=== PATIENT | male | born 1945 | race Caucasian/White ===

== ENCOUNTER 2022-04-19 23:12 | Inpatient (IN) | payer OTHER, SELFPAY ==
[2022-04-19] VITALS (8 sets, daily range): BP systolic 109–136; BP diastolic 59–90; PULSE 57–77; RESP 14–22; TEMP 35.8–37.1; O2SAT 94–99
--- NOTE | 2022-04-19 19:27 | WPDANESEPPF ---
Anes - Initial Pre Proc Eval Procedure: Operation Date: 04/19/22 19:00 Proposed Procedures p Exploratory Laparotomy, Pos Bowel Resec - Fei Gasca MD Date/Time: 04/19/22 19:27 Surgeon: Fei Gasca MD Pre Op Diagnosis: BOWEL PERFORATION Patient Data Age: 76 Gender: M Height: Weight: Patient hx anesthesia problems: none Family hx anesthesia problems: none Results Review: All pre-operative results and documents have been reviewed as part of the pre-operative evaluation. [facility] Past Medical History Medical History (Updated 04/19/22 @ 19:28 by Adryan Alston MD) INA (generalized anxiety disorder) HTN (hypertension) Hyperlipidemia Parkinsons Vascular dementia Anes - Eval Final PreProcedure Day of Procedure 04/19/22 19:27 Patient weight: normal Heart: regular rate and rhythm Lungs: clear to auscultation Airway: Mallampati scale class II Neurological: alert and oriented (x 1) Last oral intake: >/= 8 hours ASA classification: III Emergent: yes Anesthetic plan: proceed Anesthesia type and monitoring: general ETT and standard monitoring Results Review: All pre-operative results and documents have been reviewed as part of the pre-operative evaluation. Informed Consent: The patient's anesthetic plan and its attendant risks and benefits were discussed with the patient/family/POA. Questions were solicited and answers provided to the satisfaction of the patient/family/POA.
--- NOTE | 2022-04-19 19:49 | PM.IMHP ---
H&P: HPI History of Present Illness Date/Time: 04/19/22 19:49 Chief Complaint: Pneumoperitoneum and perforated bowel Narrative: Patient is a 76-year-old man who transferred here from [place] this evening. He resides in a group home and has a history of Parkinson's and mild dementia. He tested positive for COVID on 04/10 and has had some loose stools. He is not able to give a history and all of his history is taken from either my conversation with the emergency room physician in [place] or the records that accompany him. A apparently he had diarrhea but then today started having severe abdominal pain in both lower quadrants. He came to the emergency room in [place] and was noted to have a very tender abdomen with diffuse guarding. His white blood cell count was low. Creatinine was normal. H&H was normal. Urinalysis was unremarkable. A CT scan of the abdomen and pelvis was done in showed a huge pneumoperitoneum. The actual scan was not available to me but the report was. Reviewing the report showed that the entire colon was dilated and the rectum was decompressed beyond an anastomosis in the pelvis. Also it was noted that the wall of the colon was thickened. The source of the perforation was not evident from the CT scan. Once the patient arrived here, I did have a chance to briefly look over the accompanying records and talk with the patient as well as examine him. He was taken to the operating room expeditiously due to the acute surgical need. Review of Systems Review of Systems: ROS unobtainable: Yes unobtainable due to medical condition Constitutional: Constitutional: Reports as per [facility] Past Medical History Medical History (Updated 04/19/22 @ 22:43 by Fei Gasca MD) INA (generalized anxiety disorder) HTN (hypertension) Hyperlipidemia Parkinsons Vascular dementia Meds Home Medications and Allergies Allergies Allergy/AdvReac Type Severity Reaction Status Date / Time No Known Allergies Allergy Verified 04/19/22 20:00 Exam Const: General: comfortable, no acute distress, alert and awake Nutritional Appearance: underweight HENMT: Head: normocephalic and atraumatic General nose exam: Normal external nose present (Nasogastric tube in place) Mouth: Yes lip normal and Yes dry mucous membranes Eyes: Conjunctivae: conjunctivae normal Pupils: Equal, round and reactive pupils present EOM: EOMs intact bilaterally Neck: Neck: normal visual inspection, no lymphadenopathy and nontender Chest: Chest palpation & inspection: normal inspection of the chest and normal palpation of entire chest wall Resp: Effort & Inspection: normal respiratory effort Auscultation: clear to auscultation bilaterally Cardio: Rate: regular rate Rhythm: regular rhythm Heart sounds: no gallops, no murmurs and no rubs GI: Inspection: non-distended, scaphoid and scar (Transverse suprapubic scar, right lower quadrant scar, trocar scar) GI Palp: Yes Firmness to palpation present (GI), Yes Tenderness to palpation present (GI) (Diffusely with guarding), Yes Guarding due to palpation present (GI), No Hepatomegaly present and No Splenomegaly present Auscultation: absent bowel sounds Urinary Catheter: Urinary Catheter: patent and draining and urine clear Back/Spine/Pelvis: Back: no CVA tenderness, No mass and No erythema Skin: Lesions: no lesions Rashes: no rashes Neuro: General: no focal motor deficits and CN's II-XI intact bilaterally Cranial nerves: Yes Equal, round and reactive pupils present, Yes Bilaterally intact EOM present and Yes facial symmetry Speech: normal speech Motor exam (neuro): 5/5 motor strength present throughout and Motor abnormalities not present Extrem: General: no clubbing, cyanosis or edema and edema Psych: Speech and movement: Clear speech present Affect: normal affect Attitude: cooperative Assessment and Plan Assessment and plan (1) Surgical pneumoperitoneum: Code(s): K66.8
[2022-04-19] MEDS: LACTATED RINGERS 1,000 ML 30 ML IV CONT (22:09)
[2022-04-19] MEDS: fentaNYL CITRATE INJ (*CRX) 100 MCG/2 ML VIAL 25 MCG IV PUSH ×5 (22:18→23:45)
--- NOTE | 2022-04-19 22:27 | WPDHPUPDATE1 ---
History and Physical Update Update Date/Time: 04/19/22 22:27 History and Physical has been reviewed, including an updated exam of the patient. There are NO changes in the patient's condition. Risks, benefits, and alternatives have been discussed and questions answered. Patient agrees to proceed with procedure.
--- NOTE | 2022-04-19 22:54 | W.PM.PROC2 ---
Procedure Note - Detailed Date of Procedure 04/19/22 Pre-op Diagnosis Bowel perforation, pneumoperitoneum Post-op Diagnosis Other (Cecal perforation, colonic volvulus) Procedure Performed Total abdominal colectomy with ileostomy Surgeon Fei Gasca MD [employer] Furnace Operator Cathie ARIASA Anesthesia General Indications Patient was transferred here from [place] emergency room with CT scan evidence of large amount of pneumoperitoneum. He had been having abdominal pain as well. He was noted to have an acute surgical abdomen on exam and is taken now emergently to the operating room for bowel perforation. Findings Findings were unusual. The colon was quite dilated as mentioned in CT scan report. There was a serosal tear in the cecum along the tenia. Initially there was no perforation but as we continued to look there was a tiny hole in this that had probably perforated and then sealed off as the cecum decompressed somewhat. There was not a lot of free fluid in the abdomen but there was some brownish cloudy fluid that was not obviously stool. The cause of this was quite unusual. The patient had previous sigmoid resection with colorectal anastomosis and mobilization of the splenic flexure. The entire transverse colon splenic flexure and descending colon were surviving on the arc of [place]iol[place]. There was a huge mesenteric gap and very redundant colon on along vascular pedicle to the transverse colon. Volvulus had occurred involving the transverse colon and the descending colon with the long vascular pedicle and the excessive descending colon with really no mesenteric attachment. This had created colonic obstruction resulting in cecal distention and perforation. To resect the cecum and right colon left only the midtransverse pedicle which had been involved in the volvulus. This had to be sacrificed or the volvulus would recur. This did result in ischemia to the descending and distal transverse colon requiring there resection along with the ascending colon. Thus a total abdominal colectomy was required with end ileostomy. The rectum was stapled off from the colon. Description of Procedure The patient was taken to surgery and induced into general anesthesia. The abdomen is prepped and draped. We started with the mid abdominal incision and did encounter a lot of air in the abdomen. Surprisingly there was not a lot of fluid and there was no clear source of the free air immediately apparent. It was obvious that the colon itself was thickened and dilated. It was excessively mobile. I 1st ran the small intestine and saw no sign of perforation. The small intestine was then eviscerated. I looked carefully at the duodenum and stomach and saw no evidence of a perforated ulcer. I then looked at the dilated colon starting at the cecum. The findings were noted as above with the serosal defect in the tenia. No perforation was initially apparent. I was then were read that there was ruptured appendicitis. I mobilized the cecum and distal ileum. I took down adhesions and could not find the appendix as it was most likely previously removed. I then checked the remainder of the colon and noted that the volvulus had occurred. I un torsed the descending colon and transverse colon particularly at a pedicle adjacent to the ligament of Treitz and proximal jejunum. I looked again at the ascending colon and finally saw an area that was leaking a small amount of bowel content. I closed this with a 4-0 silk Lembert suture. I then decided to resect the right colon and planned to perform an ileotransverse anastomosis. I mobilized the ascending colon and the rest of the distal ileum. I then used the LigaSure as well as the cautery and divided the mesentery to the distal ileum. Distal ileum was divided with a TLC 75 stapler. The mesentery to the ascending colon was quite long. I exposed the mesentery and then used the LigaSure to divide the ileocolic artery and the mesentery to th
--- NOTE | 2022-04-19 23:30 | ADMGEN ---
This patient, Sloan Villeda, was admitted to Medical Room 346-01. Patient/family oriented to hospital policies and general routines including ID bracelet, bed and alarms, visiting hours, pain management, procedures, bathroom and other care routines, personal items, smoking policy, room service/diet, and visiting hours. Information on how to activate the Rapid Response Team has been discussed. Patient/Family are encouraged to report perceived risks to care and to ask questions if they do not understand what they are told or what they should do.
[2022-04-19] MEDS: LACTATED RINGERS 1,000 ML 100 ML IV CONT (23:57)
[2022-04-20] VITALS (13 sets, daily range): BP systolic 107–162; BP diastolic 55–88; PULSE 74–84; RESP 16–18; TEMP 36.3–37; O2SAT 94–100; BMI 22.4
--- NOTE | 2022-04-20 02:20 | PM.IMHP ---
H&P: HPI History of Present Illness Date/Time: 04/20/22 02:20 Chief Complaint: Acute abdomen Narrative: 76-year-old male with past medical history of dementia, Parkinson's disease, essential hypertension, BPH and overactive bladder who presented to the ER at [facility] due to abdominal pain and was found to have an acute abdomen. The patient was subsequently transferred to our facility for surgical intervention. The patient had tested positive for COVID on 04/10/2022. He had some loose stools associated. Earlier in the day on the the patient began having severe abdominal pain in both lower quadrants and exam consistent with acute abdomen. His imaging demonstrated a huge pneumoperitoneum and a dilated colon and rectum that was decompressed beyond the anastomosis of prior surgical procedure. The wall of the colon was thickened. The patient was brought to our facility and taken directly to the OR or the surgeon found serosal tear the cecum with a tiny hole. There was not a huge amount of free fluid. And decided the patient's prior sigmoid resection with colorectal anastomosis and mobilization of splenic flexure the antrum tired transverse colon and splenic flexure and descending colon or surviving. There was a huge mesenteric gap and redundant colon on the vascular pedicle to the transverse colon at which site there was a volvulus of the transverse colon and descending colon. This resulted in a colonic obstruction. In order to correct the obstruction surgeon had to resect the cecum and right colon as well as the midtransverse pedicle which had been involved in the volvulus. This resulted in ischemia to the descending and distal transverse colon requiring resection of these elements as well. Patient and up with a total abdominal colectomy with end ileostomy. The patient had reported 100 mL blood loss. In the ER the patient received a total of 400 mcg of phenylephrine and a little over 2 L of LR. He had approximately 300 mL of urine output. He had received Zosyn, famotidine, and lidocaine as well. The patient had significant hypokalemia at the outside facility with potassium of 2.5. The patient received 40 mEq potassium chloride rider. Source of information: H&P and surgical records. ER records from outside facility were reviewed. Patient cannot provide history due to his dementia and recent anesthesia. Review of Systems Review of Systems: Unobtainable due to the patient's dementia [facility] Past Medical History Medical History (Updated 08/04/22 @ 02:42 by Lida Rawls DO) B12 deficiency BPH (benign prostatic hyperplasia) INA (generalized anxiety disorder) HTN (hypertension) Hyperlipidemia Overactive bladder Parkinsons Vascular dementia Vitamin D deficiency Surgical History Surgical History (Updated 04/20/22 @ 04:50 by Lida Rawls DO) History of resection of large bowel Hx of cholecystectomy Family History Family History Other Unknown family medical history Social History Social History (Updated 04/20/22 @ 04:51 by Lida Rawls DO) Social History: The patient resides at a [facility]. The patient has a advanced directive in the chart that indicates code status is DNR. His [facility] records confirm this. Alcohol intake: unknown Substance use: never Spiritual care concerns: No Meds Home Medications and Allergies Home Medications Medication Instructions Recorded Confirmed Type bupropion HCl 150 mg 24 hr tablet, 150 mg PO DAILY Depression 04/20/22 04/20/22 History extended release calcium carbonate 600 mg-vitamin 2 cap PO DAILY Vitamin d deficiency 04/20/22 04/20/22 History D3 10 mcg (400 unit) capsule carbidopa 10 mg-levodopa 100 mg 1 tablet PO BID Parkinsons 04/20/22 04/20/22 History tablet carbidopa 25 mg-levodopa 100 mg 2 tablet PO QID Parkinsons 04/20/22 04/20/22 History tablet cholec
[2022-04-20 04:33] LABS: Hematocrit 38.6 % (42.0-52.0); Hemoglobin 13.1 g/dL (14.0-18.0); Mean Corpuscular HGB Conc 33.9 g/dl (32-36); Mean Corpuscular Hemoglobin 30.9 pg (26-34); Mean Platelet Volume 10.6 fl (7.4-10.4); Platelet Count Result 165 k/mm3 (150-375); Red Blood Count 4.24 M/mm3 (4.6-6.20); Red Cell Distribution Width 12.7 % (11.5-14.5); White Blood Count 6.1 K/mm3 (4.5-10.0)
[2022-04-20 04:44] LABS: INR 1.4; Partial Thromboplastin Time 28.4 SECONDS (22.3-36.8); Prothrombin Time 16.9 Seconds (11.1-14.7)
[2022-04-20 04:57] LABS: Alanine Aminotransferase 7 U/L (6-50); Albumin Level 2.4 g/dL (3.5-5.1); Alkaline Phosphatase 54 U/L (38-126); Anion Gap 5 mmol/L (8-16); Aspartate Amino Transferase 16 U/L (17-59); Bilirubin,Total 1.1 mg/dL (0.2-1.3); Blood Urea Nitrogen 22 mg/dL (9-20); Calcium 7.9 mg/dL (8.4-10.2); Carbon Dioxide 26 mmol/L (22-30); Chloride 105 mmol/L (98-107); Estimated CRCL calculation 80 ml/min; Estimated Glomerular Filt Rate > 60; Glucose 173 mg/dL (65-110); Lactic Acid Reflex 1.3 mmol/L (0.7-2.0); Magnesium 1.5 mg/dL (1.6-2.3); Potassium 2.9 mmol/L (3.4-5.0); Sodium 136 mmol/L (137-145)
[2022-04-20] MEDS: POTASSIUM CHLORIDE INJ 40 MEQ in SODIUM CHLORIDE 0.9% IV 500 ML 130 MEQ IVPB (05:32)
[2022-04-20] MEDS: MAGNESIUM SULF 4 GM/WATER100ML 4 GM/100 ML BAG IVPB (05:40)
[2022-04-20 06:31] LABS: Hematocrit 36.5 % (42.0-52.0); Hemoglobin 12.5 g/dL (14.0-18.0); Mean Corpuscular HGB Conc 34.2 g/dl (32-36); Mean Corpuscular Hemoglobin 31.6 pg (26-34); Mean Corpuscular Volume 92.2 fl (80-100); Mean Platelet Volume 10.8 fl (7.4-10.4); Platelet Count Result 167 k/mm3 (150-375); Red Blood Count 3.96 M/mm3 (4.6-6.20); Red Cell Distribution Width 12.5 % (11.5-14.5); White Blood Count 6.4 K/mm3 (4.5-10.0)
[2022-04-20 06:43] LABS: Anion Gap 6 mmol/L (8-16); Blood Urea Nitrogen 22 mg/dL (9-20); Calcium 7.8 mg/dL (8.4-10.2); Carbon Dioxide 24 mmol/L (22-30); Chloride 105 mmol/L (98-107); Estimated CRCL calculation 92 ml/min; Estimated Glomerular Filt Rate > 60; Glucose 169 mg/dL (65-110); Sodium 135 mmol/L (137-145)
[2022-04-20] MEDS: ENOXAPARIN 40 MG/0.4 ML SYRINGE SUB-Q (09:10)
[2022-04-20] MEDS: FAMOTIDINE 20 MG/2 ML VIAL IV PUSH (09:10)
[2022-04-20] MEDS: KCL 40 MEQ/D5/0.9% SOD CHL 1,000 ML 100 ML IV CONT (09:32)
--- NOTE | 2022-04-20 10:00 | PM.IMPN ---
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 - Acquired absence of other specified parts of digestive tract Status: Acute (2) History of ileostomy: Code(s): Z98.890 - Other specified postprocedural states Status: Acute (3) Perforated small intestine: Code(s): K63.1 - Perforation of intestine (nontraumatic) Status: Acute (4) Vascular dementia: Code(s): F01.50 - Vascular dementia without behavioral disturbance Status: Chronic (5) Parkinsons: Code(s): G20 - Parkinson's disease Status: Chronic (6) COVID-19: Code(s): U07.1 - COVID-19 Status: Acute Plan Patient had perforated bowel status post total large bowel resection with ileostomy. The patient is on empiric antibiotic therapy with Zosyn as he is high risk for infection given perforated viscus. Management per Surgical Service. Patient has NG tube in place to low intermittent suction and is on NPO except for ice chips. Patient is on IV fluids at 100 mL an hour. Pain management per surgical service. Patient does have a history of dementia. Dementia medications are on hold as well as his depression and anxiety medications. The patient is restless and is intermittently trying to reach for his NG and his Langford catheter. Patient did recently have COVID but is not having any respiratory symptoms. He is beyond the window for isolation for COVID-19. Isolation has been discontinued. The patient has Parkinson's disease his Sinemet and entacapone are held. Patient has acute hypokalemia. Potassium at outside facility was 2.5. Repeat here is 2.9. Will provide another potassium chloride rider. Magnesium level was also low. Will provide 4 g magnesium sulfate rider. Patient has been placed on telemetry to monitor for possible cardiac arrhythmias given a electrolyte disturbances. Recheck BMP and mag this afternoon. DVT prophylaxis per Surgical Service. Subjective Date/time seen: 04/20/22 10:00 Interval history: 76-year-old male with past medical history of dementia, Parkinson's disease, essential hypertension, BPH and overactive bladder who presented to the ER at [facility] due to abdominal pain and was found to have an acute abdomen. He is s/p total colectomy. POD 1. Alert to self and year. Somnolent but arousable. Denies pain. Further hx limited secondary to mental status. Review of Systems Review of Systems: ROS unobtainable: Yes unobtainable due to mental status Exam Narrative: Weight 72.8 kg BMI 22.4 Const: Other: Ill-appearing, well-developed well-nourished HENMT: Other: Mucous membranes are dry, NG present and connected to low intermittent wall suction Eyes: Other: Pupils are equal and reactive, no scleral icterus, no conjunctival pallor Neck: Other: No JVD, no lymphadenopathy Resp: Other: Decreased breath sounds bilaterally, no increased work of breathing Cardio: Other: Regular rate, regular rhythm, 2+ bilateral radial pedal pulses GI: Other: Underlying abdominal incision with overlying dressing clean dry and intact, ileostomy in the right side of the abdomen : Other: Langford catheter in place with dark urine present normal external male genitalia Skin: Other: Generalized pallor, non jaundice Neuro: Other: Patient is somnolent but arouses to verbal stimuli, moving all extremities equally, alert to self and year only Extrem: Other: No clubbing, cyanosis or edema, moving all extremities equally Psych: Other: Restless, grimacing, confused, not following commands Objective Data Vital Signs Vital Signs: Vital Signs - 24 hr 04/19/22 22:09 04/19/22 22:24 04/19/22 22:33 Temperature 96.4 F L Pulse Rate 57 L 64 Respiratory Rate 20 16 Blood Pressure 136/76 121/66 Pulse Oximetry 94 99 Oxygen Delivery Simple Face Mask Simple Face Mask Room Air Oxygen Flow Rate 10 10 04/19/22 2
[2022-04-20 10:14] LABS: Anion Gap 5 mmol/L (8-16); Blood Urea Nitrogen 19 mg/dL (9-20); Calcium 7.7 mg/dL (8.4-10.2); Carbon Dioxide 26 mmol/L (22-30); Chloride 107 mmol/L (98-107); Estimated CRCL calculation 80 ml/min; Estimated Glomerular Filt Rate > 60; Glucose 182 mg/dL (65-110); Magnesium 2.4 mg/dL (1.6-2.3); Potassium 3.3 mmol/L (3.4-5.0); Sodium 138 mmol/L (137-145)
--- NOTE | 2022-04-20 13:20 | PC.NURSE ---
Contacted Dr Henderson @[phone] to verify she was aware of the most recent Lactic Acid results and do report the latest vitals signs. I also informed her that family is at bedside and would like to speak to her
--- NOTE | 2022-04-20 14:19 | WPDANESPN ---
Anes - Prog Note Post-Op Date/Time: 04/20/22 14:19 Cardiovascular status: normal Respiratory status: normal Airway patency: baseline Mental status: baseline Post-Op hydration status: normal Vital Signs: Last Vital Signs Temp 36.3 C L 04/20/22 13:40 Pulse 81 04/20/22 13:40 Resp 18 04/20/22 13:40 BP 115/88 04/20/22 13:40 Pulse Ox 95 04/20/22 13:40 O2 Del Method Room Air 04/20/22 08:00 O2 Flow Rate 10 04/19/22 22:24 Pain Score (VAS): 09/26 I/O: Intake & Output 04/19/22 04/20/22 04/20/22 23:59 07:59 15:59 Intake Total 450 100 Output Total 150 Balance 450 -50 Laboratory Tests 04/20/22 06:19 04/20/22 09:53 04/20/22 04/20/22 04/20/22 04:25 04:25 04:25 WBC 6.1 RBC 4.24 L Hgb 13.1 L Hct 38.6 L MCV 91.0 MCH 30.9 MCHC 33.9 RDW 12.7 Plt Count 165 MPV 10.6 H PT 16.9 H INR 1.4 APTT 28.4 Sodium 136 L Potassium 2.9 L Chloride 105 Carbon Dioxide 26 Anion Gap 5 L BUN 22 H Creatinine 0.70 Estim Creat Clear Calc 80 Estimated GFR > 60 Glucose 173 H Lactic Acid Calcium 7.9 L Magnesium 1.5 L Total Bilirubin 1.1 AST 16 L ALT 7 Alkaline Phosphatase 54 Total Protein 5.0 L Albumin 2.4 L 04/20/22 04/20/22 04/20/22 04:25 04:25 06:19 WBC 6.4 RBC 3.96 L Hgb 12.5 L Hct 36.5 L MCV 92.2 MCH 31.6 MCHC 34.2 RDW 12.5 Plt Count 167 MPV 10.8 H PT INR APTT Sodium Potassium Chloride Carbon Dioxide Anion Gap BUN Creatinine Estim Creat Clear Calc Estimated GFR Glucose Lactic Acid 1.3 Calcium Magnesium Cancelled Total Bilirubin AST ALT Alkaline Phosphatase Total Protein Albumin 04/20/22 04/20/22 06:19 09:53 WBC RBC Hgb Hct MCV MCH MCHC RDW Plt Count MPV PT INR APTT Sodium 135 L 138 Potassium 3.0 L 3.3 L Chloride 105 107 Carbon Dioxide 24 26 Anion Gap 6 L 5 L BUN 22 H 19 Creatinine 0.60 L 0.70 Estim Creat Clear Calc 92 80 Estimated GFR > 60 > 60 Glucose 169 H 182 H Lactic Acid Calcium 7.8 L 7.7 L Magnesium 2.4 H Total Bilirubin AST ALT Alkaline Phosphatase Total Protein Albumin Post-procedural complaints: none Patient Feedback: Patient satisfied with anesthetic care.
--- NOTE | 2022-04-20 15:30 | PM.PNGS ---
Progress Note: A&P Assessment and Plan (1) Perforation of cecum: Code(s): K35.32 - Acute appendicitis with perforation and localized peritonitis, without abscess Status: Acute Assessment and Plan: doing actually pretty well after long, difficult surgery last night. Ileostomy has already started functioning. There is no nausea or abdominal distention. He is pretty lethargic but we were unsure of his baseline. NG tube was pulled out but will likely be fine with leaving it out. Probably try oral intake tomorrow. Okay to start medications such as Parkinson's medication at this time. (2) Colonic volvulus: Code(s): K56.2 - Volvulus Status: Acute Assessment and Plan: Volvulus with obstruction was source of cecal perforation. One able to eliminate risk of recurrence without sacrificing blood supply to remaining colon. Resulted in total abdominal colectomy and ileostomy. (3) Ileostomy status: Code(s): Z93.2 - Ileostomy status Status: Acute Assessment and Plan: Her ready functioning. Will watch closely for electrolyte imbalances or dehydration. (4) Status post total colectomy: Code(s): Z90.49 - Acquired absence of other specified parts of digestive tract Status: Acute (5) Vascular dementia: Code(s): F01.50 - Vascular dementia without behavioral disturbance Status: Chronic (6) Parkinsons: Code(s): G20 - Parkinson's disease Status: Chronic Subjective Subjective Date/Time Seen: 04/20/22 15:30 Post Op day: 1 Patient reports: no new complaints, afebrile and other (Not very verbal this afternoon. Was happy to hear he might get some food tomorrow) Exam Const: General: lethargic Nutritional Appearance: underweight Orientation/consciousness: lethargic GI: Inspection: non-distended, incision ( dressing dry and intact), scaphoid and other ( ileostomy pink with enteric content already) GI Palp: Yes Soft to palpation, Yes Tenderness to palpation present (GI) and Yes Other GI palpation findings present ( patient had pulled NG tube out and it has been left out) Auscultation: Hypoactive bowel sounds present Objective Data Vital Signs Vital Signs: Vital Signs - 24 hr 04/19/22 22:09 04/19/22 22:24 04/19/22 22:33 Temperature 35.8 C L Pulse Rate 57 L 64 Respiratory Rate 20 16 Blood Pressure 136/76 121/66 Pulse Oximetry 94 99 Oxygen Delivery Simple Face Mask Simple Face Mask Room Air Oxygen Flow Rate 10 10 04/19/22 22:39 04/19/22 22:54 04/19/22 23:04 Temperature Pulse Rate 67 68 70 Respiratory Rate 16 14 16 Blood Pressure 124/82 125/62 123/63 Pulse Oximetry 95 94 94 Oxygen Delivery Room Air Room Air Room Air Oxygen Flow Rate 04/19/22 23:12 04/19/22 23:27 04/19/22 23:57 Temperature 36.7 C 37.1 C 37.1 C Pulse Rate 72 75 77 Respiratory Rate 22 H 20 18 Blood Pressure 113/90 109/63 123/59 L Pulse Oximetry 95 96 98 Oxygen Delivery Oxygen Flow Rate 04/20/22 00:57 04/20/22 04:00 04/20/22 04:57 Temperature 37.0 C 36.4 C L Pulse Rate 82 82 81 Respiratory Rate 18 18 Blood Pressure 120/65 114/71 Pulse Oximetry 96 94 Oxygen Delivery Oxygen Flow Rate 04/20/22 06:00 04/20/22 10:20 04/20/22 08:00 Temperature 36.4 C L 36.3 C L Pulse Rate 80 81 76 Respiratory Rate 16 18 Blood Pressure 114/66 117/55 L Pulse Oximetry 96 98 Oxygen Delivery Oxygen Flow Rate 04/20/22 12:00 04/20/22 08:00 04/20/22 13:40 Temperature 36.3 C L Pulse Rate 76 76 81 Respiratory Rate 18 18 Blood Pressure 115/88 Pulse Oximetry 98 95 Oxygen Delivery Room Air Oxygen Flow Rate Intake/Output Intake/Output: Intake & Output 04/17/22 04/18/22 04/19/22 04/20/22 23:59 23:59 23:59 23:59 Intake Total 450 150 Output Total 150 Balance 450 0 Meds/Results Medications: Active Medications Generic Name Dose Route Start Last Admin Trade Name Freq PRN Reason Stop Dose Admin
[2022-04-20] MEDS: LORazepam INJ (*CRX) 2 MG/ML VIAL 1 MG IV PUSH (17:36)
[2022-04-21] VITALS (9 sets, daily range): BP systolic 106–116; BP diastolic 63–72; PULSE 60–76; RESP 16–20; TEMP 36–36.6; O2SAT 94–100
[2022-04-21] MEDS: KCL 40 MEQ/D5/0.9% SOD CHL 1,000 ML 100 ML IV CONT (00:22)
[2022-04-21] MEDS: FAMOTIDINE 20 MG/2 ML VIAL IV PUSH (00:23)
[2022-04-21] MEDS: fentaNYL CITRATE INJ (*CRX) 100 MCG/2 ML VIAL 25 MCG IV PUSH ×7 (02:01→17:48)
[2022-04-21 05:47] LABS: Basophils Percent Auto 0.1 % (0.2-1.2); Eosinophils Absolute Auto 0.1 K/mm3 (0-0.3); Eosinophils Percent Auto 0.9 % (0-4.4); Hematocrit 34.3 % (42.0-52.0); Hemoglobin 11.2 g/dL (14.0-18.0); Immature Granulocyte Absolute 0.07 K/mm3 (0.00-0.031); Immature Granulocyte Percent A 0.9 % (0-0.5); Lymphocytes Absolute Auto 0.31 K/mm3 (0.9-3.2); Lymphocytes Percent Auto 4.1 % (18.3-44.2); Mean Corpuscular HGB Conc 32.7 g/dl (32-36); Mean Platelet Volume 10.7 fl (7.4-10.4); Monocytes Absolute Auto 0.6 K/mm3 (0.1-0.6); Monocytes Percent Auto 7.3 % (2.6-8.5); Neutrophils Absolute Auto 6.6 K/mm3 (1.3-6.7); Neutrophils Percent Auto 86.7 % (45.5-73.1); Platelet Count Result 171 k/mm3 (150-375); Red Blood Count 3.61 M/mm3 (4.6-6.20); White Blood Count 7.6 K/mm3 (4.5-10.0)
[2022-04-21 06:03] LABS: Anion Gap 5 mmol/L (8-16); Blood Urea Nitrogen 20 mg/dL (9-20); Calcium 7.7 mg/dL (8.4-10.2); Carbon Dioxide 26 mmol/L (22-30); Chloride 110 mmol/L (98-107); Estimated CRCL calculation 80 ml/min; Estimated Glomerular Filt Rate > 60; Glucose 152 mg/dL (65-110); Potassium 3.4 mmol/L (3.4-5.0); Sodium 141 mmol/L (137-145)
[2022-04-21 06:27] LABS: Crenated RBC 1+ (NORMAL); Platelet Estimate Adequate (Adequate)
--- NOTE | 2022-04-21 07:19 | PM.PNGS ---
Progress Note: A&P Assessment and Plan (1) Perforation of cecum: Code(s): K35.32 - Acute appendicitis with perforation and localized peritonitis, without abscess Status: Acute Assessment and Plan: perforation of cecum due to colonic volvulus and obstruction. Continue Zosyn antibiotics. patient remains confused. Receiving benzodiazepines. (2) Colonic volvulus: Code(s): K56.2 - Volvulus Status: Acute Assessment and Plan: Status post total abdominal colectomy. Abdominal exam appropriate for postop day 2 (3) Ileostomy status: Code(s): Z93.2 - Ileostomy status Status: Acute Assessment and Plan: Having ileostomy function. Appears to be healthy and in good condition. (4) Parkinsons: Code(s): G20 - Parkinson's disease Status: Chronic Assessment and Plan: Can restart Parkinson's medication. (5) Vascular dementia: Code(s): F01.50 - Vascular dementia without behavioral disturbance Status: Chronic Assessment and Plan: Contributing to his confusion, will get him up today. (6) COVID-19: Code(s): U07.1 - COVID-19 Status: Acute Assessment and Plan: Tested positive 725. No longer has need of isolation. Subjective Subjective Date/Time Seen: 04/21/22 07:19 Post Op day: 2 Patient reports: bowel movement ( Having ileostomy output), afebrile and other ( very confused, nearly nonverbal, pulling at catheter, dressing.) Review of Systems Review of Systems: ROS unobtainable: Yes unobtainable due to mental status Exam Const: General: comfortable Nutritional Appearance: underweight Orientation/consciousness: lethargic GI: Inspection: non-distended, incision ( dry and healing, ileostomy looks good, positive output.) and scaphoid GI Palp: Yes Soft to palpation and Yes Tenderness to palpation present (GI) Objective Data Vital Signs Vital Signs: Vital Signs - 24 hr 04/20/22 10:20 04/20/22 08:00 04/20/22 12:00 Temperature 36.3 C L Pulse Rate 81 76 76 Respiratory Rate 18 Blood Pressure 117/55 L Pulse Oximetry 98 Oxygen Delivery 04/20/22 08:00 04/20/22 13:40 04/20/22 16:00 Temperature 36.3 C L Pulse Rate 76 81 79 Respiratory Rate 18 18 Blood Pressure 115/88 Pulse Oximetry 98 95 Oxygen Delivery Room Air 04/20/22 18:10 04/20/22 20:35 04/20/22 20:00 Temperature 36.6 C 36.6 C Pulse Rate 81 74 74 Respiratory Rate 18 16 16 Blood Pressure 162/71 H 107/63 Pulse Oximetry 100 95 95 Oxygen Delivery Room Air 04/20/22 21:19 04/21/22 00:00 04/21/22 00:57 Temperature 36.6 C 36.6 C Pulse Rate 84 68 74 Respiratory Rate 16 16 Blood Pressure 107/68 107/63 Pulse Oximetry 98 95 Oxygen Delivery 04/21/22 04:00 04/21/22 06:00 Temperature 36.0 C L Pulse Rate 76 69 Respiratory Rate 18 Blood Pressure 116/70 Pulse Oximetry 100 Oxygen Delivery Intake/Output Intake/Output: Intake & Output 04/18/22 04/19/22 04/20/22 04/21/22 23:59 23:59 23:59 23:59 Intake Total 450 1200 50 Output Total 700 750 Balance 450 500 -700 Meds/Results Medications: Active Medications Generic Name Dose Route Start Last Admin Trade Name Freq PRN Reason Stop Dose Admin Acetaminophen 500 mg 04/21/22 07:17 Acetaminophen 500 Mg Tablet PO Q6H PRN Mild Pain (1-3) or Fever Hydrocodone Bitart/Acetaminophen 1 tab 04/21/22 07:17 Hydrocodone/Acetaminophen (*Crx) 7.5-325 Mg Tablet PO Q4H PRN Pain Rated 7-10 Enoxaparin Sodium 40 mg 04/20/22 09:00 04/20/22 09:10 Enoxaparin 40 Mg/0.4 Ml Syringe SUB-Q 40 mg DAILY ANSON Administration Famotidine 20 mg 04/21/22 09:00 Famotidine 20 Mg Tablet PO Q12HR ANSON Fentanyl Citrate 25 mcg 04/19/22 23:12 04/21/22 05:18 Fentanyl Citrate Inj (*Crx) 100 Mcg/2 Ml Vial IV PUSH 25 mcg Q2H PRN Administration Pain Rated 7-10 Fentanyl Citrate 12.5 mcg 04/19/22 23:12 Fentany
[2022-04-21] MEDS: KCL 40 MEQ/D5/0.9% SOD CHL 1,000 ML 80 ML IV CONT ×2 (09:54→22:53)
[2022-04-21] MEDS: traMADol HCL (*CRX) 50 MG TABLET PO (09:56)
[2022-04-21] MEDS: buPROPion HCL XL (24 HR) 150 MG TABCR PO (09:57)
[2022-04-21] MEDS: FAMOTIDINE 20 MG TABLET PO ×2 (09:57→20:45)
[2022-04-21] MEDS: CARBIDOPA/LEVODOPA 25/100 MG TABLET 2 TABLET PO ×4 (09:57→20:45)
[2022-04-21] MEDS: CARBIDOPA/LEVODOPA 10/100 MG TABLET 1 TABLET PO ×2 (09:57→17:50)
[2022-04-21] MEDS: ENTACAPONE 200 MG TABLET PO ×3 (09:57→17:50)
[2022-04-21] MEDS: ENOXAPARIN 40 MG/0.4 ML SYRINGE SUB-Q (09:58)
--- NOTE | 2022-04-21 10:54 | PM.IMPN ---
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 - Acquired absence of other specified parts of digestive tract Status: Acute (2) History of ileostomy: Code(s): Z98.890 - Other specified postprocedural states Status: Acute (3) Perforated small intestine: Code(s): K63.1 - Perforation of intestine (nontraumatic) Status: Acute (4) Vascular dementia: Code(s): F01.50 - Vascular dementia without behavioral disturbance Status: Chronic (5) Parkinsons: Code(s): G20 - Parkinson's disease Status: Chronic (6) COVID-19: Code(s): U07.1 - COVID-19 Status: Acute Plan Patient had perforated bowel status post total large bowel resection with ileostomy. The patient is on empiric antibiotic therapy with Zosyn as he is high risk for infection given perforated viscus. Management per Surgical Service. NPO except for ice chips. Patient is on IV fluids at 80 mL an hour. Pain management per surgical service. Patient does have a history of dementia. Dementia medications are on hold as well as his depression and anxiety medications. The patient is restless and pulled out his NG and del valle catheter. He is also ripping at his surgical dressing. Patient did recently have COVID but is not having any respiratory symptoms. He is beyond the window for isolation for COVID-19. Isolation has been discontinued. The patient has Parkinson's disease his Sinemet and entacapone are held. Patient has acute hypokalemia. Potassium at outside facility was 2.5. Repeat here is 2.9. Will provide another potassium chloride rider. Magnesium level was also low. Will provide 4 g magnesium sulfate rider. Patient has been placed on telemetry to monitor for possible cardiac arrhythmias given a electrolyte disturbances. Repeat BMP w/ improvement. DVT prophylaxis per Surgical Service. Plan to try Seroquel tonight for patient's agitation. Checking EKG for qtc in the event we need to try Haldol as he is on several QT prolonging medications. Subjective Date/time seen: 04/21/22 10:54 Interval history: 76-year-old male with past medical history of dementia, Parkinson's disease, essential hypertension, BPH and overactive bladder who presented to the ER at [facility] due to abdominal pain and was found to have an acute abdomen. He is s/p total colectomy. POD 2. Alert to self only. Denies pain. Very restless. Further hx limited secondary to mental status. Review of Systems Review of Systems: ROS unobtainable: Yes unobtainable due to mental status Exam Narrative: Weight 72.8 kg BMI 22.4 Const: Other: Ill-appearing, well-developed well-nourished HENMT: Other: Mucous membranes are dry Eyes: Other: Pupils are equal and reactive, no scleral icterus, no conjunctival pallor Neck: Other: No JVD, no lymphadenopathy Resp: Other: Decreased breath sounds bilaterally, no increased work of breathing Cardio: Other: Regular rate, regular rhythm, 2+ bilateral radial pedal pulses GI: Other: Underlying abdominal incision with overlying dressing clean dry and intact, ileostomy in the right side of the abdomen Skin: Other: Generalized pallor, non jaundice Neuro: Other: moving all extremities equally, alert to self only, very restless, does not follow commands Extrem: Other: No clubbing, cyanosis or edema, moving all extremities equally Psych: Other: Restless, grimacing, confused, not following commands Objective Data Vital Signs Vital Signs: Vital Signs - 24 hr 04/20/22 12:00 04/20/22 13:40 04/20/22 16:00 Temperature 97.3 F L Pulse Rate 76 81 79 Respiratory Rate 18 Blood Pressure 115/88 Pulse Oximetry 95 Oxygen Delivery 04/20/22 18:10 04/20/22 20:35 04/20/22 20:00 Temperature 97.8 F 97.9 F Pulse Rate 81 74 74 Respiratory Rate 18 16 16 Blood Pressure 162/71 H 107/63 Pulse Oxim
--- NOTE | 2022-04-21 11:02 | ECG_ITS ---
Measurements Intervals [place] Rate: 71 P: 33 WI: 135 QRS: -3 QRSD: 96 T: 30 QT: 403 QTc: 439 Interpretive Statements SINUS RHYTHM WITH OCCASIONAL SUPRAVENTRICULAR PREMATURE COMPLEXES LOW QRS VOLTAGE IN PRECORDIAL LEADS [QRS DEFLECTION < 1.0 mV IN CHEST LEADS] ABNORMAL ECG NO PREVIOUS ECG AVAILABLE FOR COMPARISON Electronically Signed On 04-21-2022 16:27:59 CDT by Raman Jaimes M.D.
[2022-04-21] MEDS: HYDROcodone/acetaminophen (*CRX) 7.5-325 MG TABLET 1 TAB PO (12:30)
[2022-04-21] MEDS: QUEtiapine FUMARATE 12.5 MG TABLET PO (20:45)
[2022-04-21] MEDS: DONEPEZIL HCL 10 MG TABLET PO (20:45)
[2022-04-22] VITALS (8 sets, daily range): BP systolic 118–126; BP diastolic 69–80; PULSE 63–80; RESP 16–18; TEMP 36.6; O2SAT 95–97
[2022-04-22] MEDS: fentaNYL CITRATE INJ (*CRX) 100 MCG/2 ML VIAL 25 MCG IV PUSH (03:39)
[2022-04-22 06:31] LABS: Basophils Percent Auto 0.2 % (0.2-1.2); Eosinophils Absolute Auto 0.3 K/mm3 (0-0.3); Eosinophils Percent Auto 3.4 % (0-4.4); Hematocrit 35.8 % (42.0-52.0); Hemoglobin 11.1 g/dL (14.0-18.0); Immature Granulocyte Absolute 0.09 K/mm3 (0.00-0.031); Lymphocytes Absolute Auto 0.51 K/mm3 (0.9-3.2); Lymphocytes Percent Auto 5.6 % (18.3-44.2); Mean Corpuscular Hemoglobin 31.1 pg (26-34); Mean Corpuscular Volume 100.3 fl (80-100); Mean Platelet Volume 10.9 fl (7.4-10.4); Monocytes Absolute Auto 0.6 K/mm3 (0.1-0.6); Monocytes Percent Auto 6.4 % (2.6-8.5); Neutrophils Absolute Auto 7.6 K/mm3 (1.3-6.7); Neutrophils Percent Auto 83.4 % (45.5-73.1); Platelet Count Result 177 k/mm3 (150-375); Red Blood Count 3.57 M/mm3 (4.6-6.20); Red Cell Distribution Width 12.9 % (11.5-14.5); White Blood Count 9.2 K/mm3 (4.5-10.0)
[2022-04-22 06:56] LABS: Alanine Aminotransferase 9 U/L (6-50); Albumin Level 2.5 g/dL (3.5-5.1); Alkaline Phosphatase 88 U/L (38-126); Anion Gap 8 mmol/L (8-16); Aspartate Amino Transferase 18 U/L (17-59); Bilirubin,Total 0.6 mg/dL (0.2-1.3); Blood Urea Nitrogen 22 mg/dL (9-20); Calcium 8.4 mg/dL (8.4-10.2); Carbon Dioxide 23 mmol/L (22-30); Chloride 115 mmol/L (98-107); Estimated CRCL calculation 80 ml/min; Estimated Glomerular Filt Rate > 60; Glucose 129 mg/dL (65-110); Potassium 5.3 mmol/L (3.4-5.0); Sodium 146 mmol/L (137-145)
--- NOTE | 2022-04-22 07:30 | PC.NURSE ---
upon starting shift, pt had pulled off tele, and dressing off abd incision and has also pulled of colostomy appliance, wound cleansed, appliance completely replaced, reported to provider that pt is restless and pulling off everything. Pt cleaned, repositioned, will continue to monitor
[2022-04-22] MEDS: IBUPROFEN IV 800 MG/200 ML 800 MG/200 ML BAG 400 MG IVPB (08:00)
[2022-04-22] MEDS: LACTATED RINGERS 1,000 ML 75 ML IV CONT (08:02)
[2022-04-22] MEDS: ENTACAPONE 200 MG TABLET PO ×3 (09:58→17:45)
[2022-04-22] MEDS: ENOXAPARIN 40 MG/0.4 ML SYRINGE SUB-Q (09:58)
[2022-04-22] MEDS: CARBIDOPA/LEVODOPA 25/100 MG TABLET 2 TABLET PO ×4 (09:58→20:38)
[2022-04-22] MEDS: buPROPion HCL XL (24 HR) 150 MG TABCR PO (09:59)
[2022-04-22] MEDS: FAMOTIDINE 20 MG TABLET PO ×2 (09:59→20:38)
[2022-04-22] MEDS: CARBIDOPA/LEVODOPA 10/100 MG TABLET 1 TABLET PO ×2 (09:59→17:45)
--- NOTE | 2022-04-22 12:32 | PM.PNGS ---
Progress Note: A&P Assessment and Plan (1) Perforation of cecum: Code(s): K35.32 - Acute appendicitis with perforation and localized peritonitis, without abscess Status: Acute Assessment and Plan: perforation of cecum due to colonic volvulus and obstruction. Continue Zosyn antibiotics. Advance to full liquid diet today (2) Colonic volvulus: Code(s): K56.2 - Volvulus Status: Acute Assessment and Plan: Status post total abdominal colectomy. (3) Ileostomy status: Code(s): Z93.2 - Ileostomy status Status: Acute Assessment and Plan: Having ileostomy function. Appears to be healthy and in good condition. (4) Parkinsons: Code(s): G20 - Parkinson's disease Status: Chronic Assessment and Plan: Can restart Parkinson's medication. (5) Vascular dementia: Code(s): F01.50 - Vascular dementia without behavioral disturbance Status: Chronic Assessment and Plan: Contributing to his confusion, will get him up today. (6) COVID-19: Code(s): U07.1 - COVID-19 Status: Acute Assessment and Plan: Tested positive 04/10. No longer has need of isolation. Subjective Subjective Date/Time Seen: 04/22/22 12:32 Interval history: Ostomy functioning. Patient paranoid. Pulling out IV's, Pulled dressing and ostomy appliance off this AM. Exam GI: Inspection: incision (intact with ellie) and other (ileostomy functioning, pink) GI Palp: Yes Soft to palpation and Yes Tenderness to palpation present (GI) (incisional) Objective Data Vital Signs Vital Signs: Vital Signs - 24 hr 04/21/22 13:52 04/21/22 16:04 04/21/22 19:39 Temperature 36.1 C L 36.6 C Pulse Rate 76 62 65 Respiratory Rate 16 20 Blood Pressure 114/71 106/72 Pulse Oximetry 99 94 Oxygen Delivery 04/21/22 20:00 04/22/22 00:00 04/22/22 04:58 Temperature 36.6 C Pulse Rate 60 64 71 Respiratory Rate 16 Blood Pressure 118/69 Pulse Oximetry 95 Oxygen Delivery 04/22/22 04:00 04/22/22 07:30 Temperature Pulse Rate 76 Respiratory Rate Blood Pressure Pulse Oximetry Oxygen Delivery Room Air Intake/Output Intake/Output: Intake & Output 04/19/22 04/20/22 04/21/22 04/22/22 23:59 23:59 23:59 23:59 Intake Total 450 2820 2560 445 Output Total 700 875 150 Balance 450 2120 1685 295 Meds/Results Medications: Active Medications Generic Name Dose Route Start Last Admin Trade Name Freq PRN Reason Stop Dose Admin Acetaminophen 500 mg 04/21/22 07:17 Acetaminophen 500 Mg Tablet PO Q6H PRN Mild Pain (1-3) or Fever Hydrocodone Bitart/Acetaminophen 1 tab 04/21/22 07:17 04/21/22 12:30 Hydrocodone/Acetaminophen (*Crx) 7.5-325 Mg Tablet PO 1 tab Q4H PRN Administration Pain Rated 7-10 Bupropion HCl 150 mg 04/21/22 09:00 04/22/22 09:59 Bupropion Hcl Xl (24 Hr) 150 Mg Tabcr PO 150 mg DAILY ANSON Administration Carbidopa/Levodopa 1 tablet 04/21/22 09:00 04/22/22 09:59 Carbidopa/Levodopa 10/100 Mg Tablet PO 1 tablet BID ANSON Administration Carbidopa/Levodopa 2 tablet 04/21/22 09:00 04/22/22 09:58 Carbidopa/Levodopa 25/100 Mg Tablet PO 2 tablet QID ANSON Administration Donepezil HCl 10 mg 04/21/22 21:00 04/21/22 20:45 Donepezil Hcl 10 Mg Tablet PO 10 mg HS ANSON Administration Enoxaparin Sodium 40 mg 04/20/22 09:00 04/22/22 09:58 Enoxaparin 40 Mg/0.4 Ml Syringe SUB-Q 40 mg DAILY ANSON Administration Entacapone 200 mg 04/21/22 09:00 04/22/22 09:58 Entacapone 200 Mg Tablet PO 200 mg TID ANSON Administration Famotidine 20 mg 04/21/22 09:00 04/22/22 09:59 Famotidine 20 Mg Tablet PO 20 mg Q12HR ANSON Administration Fentanyl Citrate 25 mcg 04/19/22 23:12 04/22/22 03:39 Fentanyl Citrate Inj (*Crx) 100 Mcg/2 Ml Vial IV PUSH 25 mcg Q2H PRN Administration Pain Rated 7-10 Fentanyl Citrate 12.5 mcg 04/19/22
--- NOTE | 2022-04-22 13:13 | PM.IMPN ---
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 With that being said, he has not gotten very much of it due to pulling out his IV - continue with surgical recommendations (2) History of ileostomy: Code(s): Z98.890 - Other specified postprocedural states Status: Acute Assessment and Plan: as above (3) Vascular dementia: Code(s): F01.50 - Vascular dementia without behavioral disturbance Status: Chronic Assessment and Plan: patient has a history of dementia and his confusion waxes and wanes at this time - he seems pretty content during my exam - continue Seroquel that was started yesterday at night - check B12 and folate (4) Parkinsons: Code(s): G20 - Parkinson's disease Status: Chronic Assessment and Plan: continue Sinemet - no parkinsonian features noted on exam (5) COVID-19: Code(s): U07.1 - COVID-19 Status: Acute Assessment and Plan: tested positive April 10, 2022 but is not having symptoms and is out of isolation (6) Hyperkalemia: Code(s): E87.5 - Hyperkalemia Status: Acute Assessment and Plan: patient was on IV fluids that contain potassium which were stopped. I suspect this will auto correct - will recheck BMP this afternoon - continue telemetry (7) Hypernatremia: Code(s): E87.0 - Hyperosmolality and hypernatremia Status: Acute Assessment and Plan: could be due to dehydration as the patient has been pulling out his IV - recheck labs this afternoon - lactated Ringer's started this morning but there appears to be a full bad since the patient keeps pulling out his IV - encourage oral hydration Time Spent With Patient Time with patient: 25 - 35 minutes Subjective Date/time seen: 04/22/22 13:13 Interval history: Pt is a 76-year-old male here for perforated bowel. Patient was seen today and was pretty cooperative. he denies chest pain, shortness of breath, abdominal pain, nausea or vomiting. He asked me logical questions such as when is he going home and when I answered probably sometime soon he asked me just how long soon was. nurse states he goes in and out of some intense confusion and was ripping out his IV and telemetry earlier today. he last had a bowel movement yesterday and is now up to full liquids according to the nursing staff. Review of Systems Review of Systems: All systems reviewed & are unremarkable except as noted in HPI and below Exam Narrative: General: Well developed well nourished patient in NAD HEENT: normocephalic Neck: supple Neuro: Alert and oriented to himself, location and the year but not the president or situation. moves all extremities spontaneously but does not cooperate for a full exam CV:RRR. Telemetry without significant abnormal reviews Resp:CTA Abd: Soft, non distended. colostomy with output noted. incision site clean and dry Extremities: No swelling, erythema, or pain to palpation. Objective Data Vital Signs Vital Signs: Vital Signs - 24 hr 04/21/22 13:52 04/21/22 16:04 04/21/22 19:39 Temperature 97.0 F L 97.8 F Pulse Rate 76 62 65 Respiratory Rate 16 20 Blood Pressure 114/71 106/72 Pulse Oximetry 99 94 Oxygen Delivery 04/21/22 20:00 04/22/22 00:00 04/22/22 04:58 Temperature 97.9 F Pulse Rate 60 64 71 Respiratory Rate 16 Blood Pressure 118/69 Pulse Oximetry 95 Oxygen Delivery 04/22/22 04:00 04/22/22 07:30 Temperature Pulse Rate 76 Respiratory Rate Blood Pressure Pulse Oximetr
[2022-04-22 13:39] LABS: Anion Gap 5 mmol/L (8-16); Blood Urea Nitrogen 22 mg/dL (9-20); Calcium 8.2 mg/dL (8.4-10.2); Carbon Dioxide 27 mmol/L (22-30); Chloride 113 mmol/L (98-107); Estimated CRCL calculation 80 ml/min; Estimated Glomerular Filt Rate > 60; Glucose 135 mg/dL (65-110); Potassium 3.9 mmol/L (3.4-5.0); Sodium 145 mmol/L (137-145)
--- NOTE | 2022-04-22 17:09 | PC.NURSE ---
pt becoming restless again, asking about family, brother and sister in law are on covid quaranteen until 04/23 and have been unable to visit, I did attempt to explain that to pt, he remained restless so I placed a call to brother Osvaldo and he was able to speak to him, he is telling them he has been kidnapped and that he isn't sure he should believe these people.' pt is better after talking to family but he remains suspicious
[2022-04-22] MEDS: DONEPEZIL HCL 10 MG TABLET PO (20:38)
[2022-04-22] MEDS: QUEtiapine FUMARATE 12.5 MG TABLET PO (20:38)
[2022-04-22] MEDS: ONDANSETRON INJ 4 MG/2 ML VIAL IV PUSH (23:04)
[2022-04-23] VITALS (8 sets, daily range): BP systolic 154–161; BP diastolic 73–88; PULSE 55–78; RESP 18–20; TEMP 36.1–36.8; O2SAT 96–97
[2022-04-23] MEDS: MAG HYDROX/AL HYDROX/SIMETH 30 ML UDC PO (01:52)
[2022-04-23] MEDS: LACTATED RINGERS 1,000 ML 75 ML IV CONT (04:50)
[2022-04-23] MEDS: ACETAMINOPHEN 500 MG TABLET PO ×2 (04:50→14:41)
[2022-04-23 05:36] LABS: Anion Gap 5 mmol/L (8-16); Blood Urea Nitrogen 23 mg/dL (9-20); Calcium 8.2 mg/dL (8.4-10.2); Carbon Dioxide 28 mmol/L (22-30); Chloride 110 mmol/L (98-107); Estimated CRCL calculation 92 ml/min; Estimated Glomerular Filt Rate > 60; Glucose 117 mg/dL (65-110); Sodium 143 mmol/L (137-145)
[2022-04-23 06:10] LABS: Hematocrit 34.6 % (42.0-52.0); Mean Corpuscular HGB Conc 31.8 g/dl (32-36); Mean Corpuscular Hemoglobin 30.4 pg (26-34); Mean Corpuscular Volume 95.6 fl (80-100); Mean Platelet Volume 10.8 fl (7.4-10.4); Platelet Count Result 185 k/mm3 (150-375); Red Blood Count 3.62 M/mm3 (4.6-6.20); Red Cell Distribution Width 12.8 % (11.5-14.5); White Blood Count 7.6 K/mm3 (4.5-10.0)
[2022-04-23 06:40] LABS: Folic Acid 5.8 ng/mL (2.76->20)
[2022-04-23] MEDS: ENTACAPONE 200 MG TABLET PO ×3 (07:55→17:23)
[2022-04-23] MEDS: ENOXAPARIN 40 MG/0.4 ML SYRINGE SUB-Q (07:55)
[2022-04-23] MEDS: CARBIDOPA/LEVODOPA 10/100 MG TABLET 1 TABLET PO ×2 (07:56→17:23)
[2022-04-23] MEDS: IBUPROFEN IV 800 MG/200 ML 800 MG/200 ML BAG 400 MG IVPB (07:56)
[2022-04-23] MEDS: CARBIDOPA/LEVODOPA 25/100 MG TABLET 2 TABLET PO ×4 (07:56→21:14)
[2022-04-23] MEDS: buPROPion HCL XL (24 HR) 150 MG TABCR PO (07:56)
[2022-04-23] MEDS: FAMOTIDINE 20 MG TABLET PO ×2 (07:56→21:15)
[2022-04-23] MEDS: LORazepam INJ (*CRX) 2 MG/ML VIAL 0.5 MG IV PUSH (10:29)
--- NOTE | 2022-04-23 12:25 | PM.PNGS ---
Progress Note: A&P Assessment and Plan (1) Perforation of cecum: Code(s): K35.32 - Acute appendicitis with perforation and localized peritonitis, without abscess Status: Acute Assessment and Plan: perforation of cecum due to colonic volvulus and obstruction. Switch Zosyn to ora Augmentin and Flagyl to allow less IV needs Advance to regular diet (2) Colonic volvulus: Code(s): K56.2 - Volvulus Status: Acute Assessment and Plan: Status post total abdominal colectomy. (3) Ileostomy status: Code(s): Z93.2 - Ileostomy status Status: Acute Assessment and Plan: Having ileostomy function. Appears to be healthy and in good condition. (4) Parkinsons: Code(s): G20 - Parkinson's disease Status: Chronic Assessment and Plan: Can restart Parkinson's medication. (5) Vascular dementia: Code(s): F01.50 - Vascular dementia without behavioral disturbance Status: Chronic Assessment and Plan: Contributing to his confusion, will get him up today. (6) COVID-19: Code(s): U07.1 - COVID-19 Status: Acute Assessment and Plan: Tested positive 04/10. No longer has need of isolation. Subjective Subjective Date/Time Seen: 04/23/22 12:25 Interval history: Tolerating full liquids. No complaints. Nurse reports had to give Ativan once this AM due to agitation. Exam GI: Inspection: incision (intact with ellie) and other (ostomy pink, functioning) GI Palp: Yes Soft to palpation, No Tenderness to palpation present (GI) and No Guarding due to palpation present (GI) Objective Data Vital Signs Vital Signs: Vital Signs - 24 hr 04/22/22 16:00 04/22/22 14:00 04/22/22 20:19 Temperature 36.6 C 36.6 C Pulse Rate 63 69 80 Respiratory Rate 18 16 Blood Pressure 126/80 122/80 Pulse Oximetry 97 97 Oxygen Delivery 04/22/22 20:00 04/23/22 00:00 04/23/22 04:14 Temperature 36.3 C L Pulse Rate 63 63 70 Respiratory Rate 18 Blood Pressure 158/88 H Pulse Oximetry 97 Oxygen Delivery 04/23/22 04:00 04/23/22 07:50 Temperature Pulse Rate 70 Respiratory Rate Blood Pressure Pulse Oximetry Oxygen Delivery Room Air Intake/Output Intake/Output: Intake & Output 04/20/22 04/21/22 04/22/22 04/23/22 23:59 23:59 23:59 23:59 Intake Total 2820 2560 2345 670 Output Total 700 875 300 150 Balance 2120 1685 2045 520 Meds/Results Medications: Active Medications Generic Name Dose Route Start Last Admin Trade Name Freq PRN Reason Stop Dose Admin Acetaminophen 500 mg 04/21/22 07:17 04/23/22 04:50 Acetaminophen 500 Mg Tablet PO 500 mg Q6H PRN Administration Mild Pain (1-3) or Fever Hydrocodone Bitart/Acetaminophen 1 tab 04/21/22 07:17 04/21/22 12:30 Hydrocodone/Acetaminophen (*Crx) 7.5-325 Mg Tablet PO 1 tab Q4H PRN Administration Pain Rated 7-10 Al Hydrox/Mg Hydrox/Simethicone 30 ml 04/23/22 01:45 04/23/22 01:52 Mag Hydrox/Al Hydrox/Simeth 30 Ml Udc PO 30 ml Q6H PRN Administration Indigestion Bupropion HCl 150 mg 04/21/22 09:00 04/23/22 07:56 Bupropion Hcl Xl (24 Hr) 150 Mg Tabcr PO 150 mg DAILY ANSON Administration Carbidopa/Levodopa 1 tablet 04/21/22 09:00 04/23/22 07:56 Carbidopa/Levodopa 10/100 Mg Tablet PO 1 tablet BID ANSON Administration Carbidopa/Levodopa 2 tablet 04/21/22 09:00 04/23/22 07:56 Carbidopa/Levodopa 25/100 Mg Tablet PO 2 tablet QID ANSON Administration Donepezil HCl 10 mg 04/21/22 21:00 04/22/22 20:38 Donepezil Hcl 10 Mg Tablet PO 10 mg HS ANSON Administration Enoxaparin Sodium 40 mg 04/20/22 09:00 04/23/22 07:55 Enoxaparin 40 Mg/0.4 Ml Syringe SUB-Q 40 mg DAILY ANSON Administration Entacapone 200 mg 04/21/22 09:00 04/23/22 07:55 Entacapone 200 Mg Tablet PO 200 mg TID ANSON Administration Famotidine 20 mg 04/21/22 09:00 04/23/22 07:56 Famotidine 20
[2022-04-23] MEDS: metroNIDAZOLE 250 MG TABLET 500 MG PO ×2 (14:40→21:14)
--- NOTE | 2022-04-23 15:59 | PM.IMPN ---
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 With that being said, he has not gotten very much of it due to pulling out his IV - continue with surgical recommendations 04/23/2022 interval history: POD # 4 patient remains restless and somewhat agitated, unable to provider ROS, seen by surgery service stop IV Zosyn and switch to oral Augmentin and Flagyl to avoid IVs as patient is pulling IVs out, also advanced diet to regular, will continue to monitor, (2) History of ileostomy: Code(s): Z98.890 - Other specified postprocedural states Status: Acute Assessment and Plan: as above (3) Vascular dementia: Code(s): F01.50 - Vascular dementia without behavioral disturbance Status: Chronic Assessment and Plan: patient has a history of dementia and his confusion waxes and wanes at this time - he seems pretty content during my exam - continue Seroquel that was started yesterday at night - check B12 and folate (4) Parkinsons: Code(s): G20 - Parkinson's disease Status: Chronic Assessment and Plan: continue Sinemet - no parkinsonian features noted on exam (5) COVID-19: Code(s): U07.1 - COVID-19 Status: Acute Assessment and Plan: tested positive April 10, 2022 but is not having symptoms and is out of isolation (6) Hyperkalemia: Code(s): E87.5 - Hyperkalemia Status: Acute Assessment and Plan: patient was on IV fluids that contain potassium which were stopped. I suspect this will auto correct - will recheck BMP this afternoon - continue telemetry (7) Hypernatremia: Code(s): E87.0 - Hyperosmolality and hypernatremia Status: Acute Assessment and Plan: could be due to dehydration as the patient has been pulling out his IV - recheck labs this afternoon - lactated Ringer's started this morning but there appears to be a full bad since the patient keeps pulling out his IV - encourage oral hydration Subjective Date/time seen: 04/23/22 15:59 Interval history: Pt is a 76-year-old male here for perforated bowel. Patient was seen today and was pretty cooperative. he denies chest pain, shortness of breath, abdominal pain, nausea or vomiting. He asked me logical questions such as when is he going home and when I answered probably sometime soon he asked me just how long soon was. nurse states he goes in and out of some intense confusion and was ripping out his IV and telemetry earlier today. he last had a bowel movement yesterday and is now up to full liquids according to the nursing staff. 04/23/2022 interval history POD #4 patient remains restless and somewhat agitated, unable to provider ROS, seen by surgery service stop IV Zosyn and switch to oral Augmentin and Flagyl to avoid IVs as patient is pulling IVs out, also advanced diet to regular, will continue to monitor, Review of Systems Review of Systems: ROS unobtainable: Yes unobtainable due to mental status Exam Narrative: elderly frail Patient is comfortable, NAD HEENT: eyes are clear and none icteric LUNGS: normal respiratory effort ABD: not distended Lower extremities: no edema SKIN: nonjaundiced Neuro: grossly intact somewhat confused. Objective Data Vital Signs Vital Signs: Vital Signs - 24 hr 04/22/22 16:00 04/22/22 20:19 04/22/22 20:00 Temperature 97.8 F Pulse Rate 63 80 63 Respiratory Rate 16 Blood Pressure 122/80 Pulse Oximetry 97 Oxygen Delivery 04/23/22 00:00 04/23/22 04:14 04/23/22 04:00 Temperature
[2022-04-23] MEDS: DONEPEZIL HCL 10 MG TABLET PO (21:14)
[2022-04-23] MEDS: QUEtiapine FUMARATE 12.5 MG TABLET PO (21:14)
[2022-04-23] MEDS: AMOXICILLIN/CLAVULANATE K 875-125 MG TAB 1 TABLET PO (21:15)
[2022-04-24] MEDS: MAG HYDROX/AL HYDROX/SIMETH 30 ML UDC PO (03:11)
[2022-04-24 06:00] LABS: Hematocrit 34.5 % (42.0-52.0); Mean Corpuscular HGB Conc 31.9 g/dl (32-36); Mean Corpuscular Hemoglobin 30.1 pg (26-34); Mean Corpuscular Volume 94.3 fl (80-100); Mean Platelet Volume 10.4 fl (7.4-10.4); Platelet Count Result 186 k/mm3 (150-375); Red Blood Count 3.66 M/mm3 (4.6-6.20); Red Cell Distribution Width 12.6 % (11.5-14.5)
[2022-04-24] MEDS: metroNIDAZOLE 250 MG TABLET 500 MG PO ×3 (06:06→21:35)
[2022-04-24 06:11] LABS: Albumin Level 2.7 g/dL (3.5-5.1); Anion Gap 5 mmol/L (8-16); Blood Urea Nitrogen 20 mg/dL (9-20); Calcium 7.6 mg/dL (8.4-10.2); Carbon Dioxide 28 mmol/L (22-30); Chloride 108 mmol/L (98-107); Estimated CRCL calculation 108 ml/min; Estimated Glomerular Filt Rate > 60; Glucose 86 mg/dL (65-110); Magnesium 1.8 mg/dL (1.6-2.3); Phosphorus 1.9 mg/dL (2.5-4.5); Sodium 141 mmol/L (137-145)
[2022-04-24 06:14] VITALS: BP 154/78; PULSE 73; RESP 16; TEMP 36.6; O2SAT 97
--- NOTE | 2022-04-24 08:26 | PM.PNGS ---
Progress Note: A&P Assessment and Plan (1) Perforation of cecum: Code(s): K35.32 - Acute appendicitis with perforation and localized peritonitis, without abscess Status: Acute Assessment and Plan: Patient now on oral antibiotics. Has good ileostomy function. Eating fair but this may be due to his confusion. (2) Colonic volvulus: Code(s): K56.2 - Volvulus Status: Acute Assessment and Plan: Resolved (3) Ileostomy status: Code(s): Z93.2 - Ileostomy status Status: Acute Assessment and Plan: ileostomy looks good and is functioning well. No evidence of dehydration or electrolyte imbalance with new ileostomy. (4) Parkinsons: Code(s): G20 - Parkinson's disease Status: Chronic Assessment and Plan: Oral meds resumed (5) Vascular dementia: Code(s): F01.50 - Vascular dementia without behavioral disturbance Status: Chronic Assessment and Plan: patient very confused postoperatively. Subjective Subjective Date/Time Seen: 04/24/22 08:26 Post Op day: 5 Patient reports: bowel movement ( ileostomy working well) and other ( patient very confused, unable to give history.) Review of Systems Review of Systems: ROS unobtainable: Yes unobtainable due to mental status Exam Const: General: comfortable, no acute distress and awake Nutritional Appearance: thin Orientation/consciousness: confusion GI: Inspection: non-distended, incision ( Incision dry and healing well), scaphoid and other ( good amount enteric content in the stoma bag this morning.) GI Palp: Yes Firmness to palpation present (GI), No Tenderness to palpation present (GI) and No Guarding due to palpation present (GI) Objective Data Vital Signs Vital Signs: Vital Signs - 24 hr 04/23/22 14:00 04/23/22 12:00 04/23/22 16:00 Temperature 36.8 C Pulse Rate 74 55 L 61 Respiratory Rate 20 Blood Pressure 161/73 H Pulse Oximetry 96 04/23/22 20:24 04/24/22 06:14 Temperature 36.1 C L 36.6 C Pulse Rate 69 73 Respiratory Rate 18 16 Blood Pressure 154/82 H 154/78 H Pulse Oximetry 96 97 Intake/Output Intake/Output: Intake & Output 08/05/22 08/06/22 08/07/22 08/08/22 23:59 23:59 23:59 23:59 Intake Total 2560 2345 870 240 Output Total 418 799 0441 550 Balance 3024 9346 -218 -336 Meds/Results Medications: Active Medications Generic Name Dose Route Start Last Admin Trade Name Freq PRN Reason Stop Dose Admin Acetaminophen 500 mg 04/21/22 07:17 04/23/22 14:41 Acetaminophen 500 Mg Tablet PO 500 mg Q6H PRN Administration Mild Pain (1-3) or Fever Hydrocodone Bitart/Acetaminophen 1 tab 04/21/22 07:17 04/21/22 12:30 Hydrocodone/Acetaminophen (*Crx) 7.5-325 Mg Tablet PO 1 tab Q4H PRN Administration Pain Rated 7-10 Al Hydrox/Mg Hydrox/Simethicone 30 ml 04/23/22 01:45 04/24/22 03:11 Mag Hydrox/Al Hydrox/Simeth 30 Ml Udc PO 30 ml Q6H PRN Administration Indigestion Amoxicillin/Clavulanate Potassium 1 tablet 04/23/22 21:00 04/23/22 21:15 Amoxicillin/Clavulanate K 875-125 Mg Tab PO 1 tablet Q12HR ANSON Administration Bupropion HCl 150 mg 04/21/22 09:00 04/23/22 07:56 Bupropion Hcl Xl (24 Hr) 150 Mg Tabcr PO 150 mg DAILY ANSON Administration Carbidopa/Levodopa 1 tablet 04/21/22 09:00 04/23/22 17:23 Carbidopa/Levodopa 10/100 Mg Tablet PO 1 tablet BID ANSON Administration Carbidopa/Levodopa 2 tablet 04/21/22 09:00 04/23/22 21:14 Carbidopa/Levodopa 25/100 Mg Tablet PO 2 tablet QID ANSON Administration Donepezil HCl 10 mg 04/21/22 21:00 04/23/22 21:14 Donepezil Hcl 10 Mg Tablet PO 10 mg HS ANSON Administration Enoxaparin Sodium 40 mg 04/20/22 09:00 04/23/22 07:55 Enoxaparin 40 Mg/0.4 Ml Syringe SUB-Q 40 mg DAILY ANSON Administration Entacapone 200 mg 04/21/22 09:00 04/23/22 17:23 Entacapone 200 Mg Tablet PO 200 mg TID ANSON Administration F
[2022-04-24] MEDS: POTASSIUM/PHOSPHORUS/SODIUM 1.5 GM PACKET 1 PACKET PO (08:46)
[2022-04-24] MEDS: CARBIDOPA/LEVODOPA 10/100 MG TABLET 1 TABLET PO ×2 (08:47→16:18)
[2022-04-24] MEDS: CARBIDOPA/LEVODOPA 25/100 MG TABLET 2 TABLET PO ×4 (08:47→21:35)
[2022-04-24] MEDS: ENTACAPONE 200 MG TABLET PO ×3 (08:47→16:18)
[2022-04-24] MEDS: buPROPion HCL XL (24 HR) 150 MG TABCR PO (08:47)
[2022-04-24] MEDS: FAMOTIDINE 20 MG TABLET PO ×2 (08:48→21:35)
[2022-04-24] MEDS: ENOXAPARIN 40 MG/0.4 ML SYRINGE SUB-Q (08:48)
[2022-04-24] MEDS: AMOXICILLIN/CLAVULANATE K 875-125 MG TAB 1 TABLET PO ×2 (08:51→21:35)
[2022-04-24 14:00] VITALS: BP 141/74; PULSE 69; RESP 16; TEMP 36.6; O2SAT 96
--- NOTE | 2022-04-24 14:02 | PC.NURSE ---
Patient had one episode of emesis this afternoon. Will continue to monitor for further episodes.
--- NOTE | 2022-04-24 14:38 | PM.IMPN ---
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 With that being said, he has not gotten very much of it due to pulling out his IV - continue with surgical recommendations 04/23/2022 interval history: POD # 4 patient remains restless and somewhat agitated, unable to provider ROS, seen by surgery service stop IV Zosyn and switch to oral Augmentin and Flagyl to avoid IVs as patient is pulling IVs out, also advanced diet to regular, will continue to monitor, 04/24/2022 interval history POD #5 today patient is more calm, and not as agitated, he being assisted by nursing staff with his breakfast, unable to provider ROS,on 04/23 seen by surgery service stopped IV Zosyn and switch to oral Augmentin and Flagyl to avoid IVs as patient is pulling IVs out, also advanced diet to regular, today patient is seen by surgery service, ileostomy is functioning, patient is tolerating his diet, will continue to monitor, (2) History of ileostomy: Code(s): Z98.890 - Other specified postprocedural states Status: Acute Assessment and Plan: as above (3) Vascular dementia: Code(s): F01.50 - Vascular dementia without behavioral disturbance Status: Chronic Assessment and Plan: patient has a history of dementia and his confusion waxes and wanes at this time - he seems pretty content during my exam - continue Seroquel that was started yesterday at night - check B12 and folate (4) Parkinsons: Code(s): G20 - Parkinson's disease Status: Chronic Assessment and Plan: continue Sinemet - no parkinsonian features noted on exam (5) COVID-19: Code(s): U07.1 - COVID-19 Status: Acute Assessment and Plan: tested positive April 10, 2022 but is not having symptoms and is out of isolation (6) Hyperkalemia: Code(s): E87.5 - Hyperkalemia Status: Acute Assessment and Plan: patient was on IV fluids that contain potassium which were stopped. I suspect this will auto correct - will recheck BMP this afternoon - continue telemetry (7) Hypernatremia: Code(s): E87.0 - Hyperosmolality and hypernatremia Status: Acute Assessment and Plan: could be due to dehydration as the patient has been pulling out his IV - recheck labs this afternoon - lactated Ringer's started this morning but there appears to be a full bad since the patient keeps pulling out his IV - encourage oral hydration Subjective Date/time seen: 04/24/22 14:38 Interval history: Pt is a 76-year-old male here for perforated bowel. Patient was seen today and was pretty cooperative. he denies chest pain, shortness of breath, abdominal pain, nausea or vomiting. He asked me logical questions such as when is he going home and when I answered probably sometime soon he asked me just how long soon was. nurse states he goes in and out of some intense confusion and was ripping out his IV and telemetry earlier today. he last had a bowel movement yesterday and is now up to full liquids according to the nursing staff. 04/24/2022 interval history POD #5 today patient is more calm, and not as agitated, he being assisted by nursing staff with his breakfast, unable to provider ROS,on 04/23 seen by surgery service stopped IV Zosyn and switch to oral Augmentin and Flagyl to avoid IVs as patient is pulling IVs out, also advanced diet to regular, today patient is seen by surgery service, ileostomy is functioning, patient is tolerating his diet, will continue to monitor, Review of Systems Review of Sy
[2022-04-24 21:01] VITALS: BP 110/60; PULSE 72; RESP 16; TEMP 36.9; O2SAT 94
[2022-04-24] MEDS: QUEtiapine FUMARATE 12.5 MG TABLET PO (21:35)
[2022-04-24] MEDS: DONEPEZIL HCL 10 MG TABLET PO (21:35)
[2022-04-25 05:44] VITALS: BP 111/56; PULSE 70; RESP 16; TEMP 36.9; O2SAT 95
[2022-04-25 05:47] LABS: Hematocrit 34.3 % (42.0-52.0); Hemoglobin 10.8 g/dL (14.0-18.0); Mean Corpuscular HGB Conc 31.5 g/dl (32-36); Mean Corpuscular Hemoglobin 29.9 pg (26-34); Platelet Count Result 174 k/mm3 (150-375); Red Blood Count 3.61 M/mm3 (4.6-6.20); Red Cell Distribution Width 12.8 % (11.5-14.5); White Blood Count 6.2 K/mm3 (4.5-10.0)
[2022-04-25] MEDS: metroNIDAZOLE 250 MG TABLET 500 MG PO ×3 (06:03→20:49)
[2022-04-25 06:09] LABS: Albumin Level 2.5 g/dL (3.5-5.1); Anion Gap 3 mmol/L (8-16); Blood Urea Nitrogen 21 mg/dL (9-20); Carbon Dioxide 29 mmol/L (22-30); Chloride 104 mmol/L (98-107); Estimated CRCL calculation 92 ml/min; Estimated Glomerular Filt Rate > 60; Glucose 93 mg/dL (65-110); Magnesium 1.9 mg/dL (1.6-2.3); Phosphorus 2.1 mg/dL (2.5-4.5); Sodium 136 mmol/L (137-145)
[2022-04-25] MEDS: buPROPion HCL XL (24 HR) 150 MG TABCR PO (08:54)
[2022-04-25] MEDS: CARBIDOPA/LEVODOPA 25/100 MG TABLET 2 TABLET PO ×4 (08:54→20:49)
[2022-04-25] MEDS: AMOXICILLIN/CLAVULANATE K 875-125 MG TAB 1 TABLET PO ×2 (08:54→20:49)
[2022-04-25] MEDS: CARBIDOPA/LEVODOPA 10/100 MG TABLET 1 TABLET PO ×2 (08:54→17:24)
[2022-04-25] MEDS: FAMOTIDINE 20 MG TABLET PO ×2 (08:55→20:49)
[2022-04-25] MEDS: ENTACAPONE 200 MG TABLET PO ×3 (08:55→17:24)
[2022-04-25] MEDS: ENOXAPARIN 40 MG/0.4 ML SYRINGE SUB-Q (08:55)
--- NOTE | 2022-04-25 08:55 | PM.PNGS ---
Progress Note: A&P Assessment and Plan (1) Perforation of cecum: Code(s): K35.32 - Acute appendicitis with perforation and localized peritonitis, without abscess Status: Acute Assessment and Plan: patient looks good postop day 6. Confusion seems to have resolved and back to baseline mental status. He is eating well and colostomy is working well. Continue antibiotics for a full 7 days. (2) Colonic volvulus: Code(s): K56.2 - Volvulus Status: Acute Assessment and Plan: Resolved status post abdominal colectomy with ileostomy (3) Ileostomy status: Code(s): Z93.2 - Ileostomy status Status: Acute Assessment and Plan: working well. No leaks around the appliance. No electrolyte imbalance from new ileostomy. (4) Parkinsons: Code(s): G20 - Parkinson's disease Status: Chronic Assessment and Plan: Back on home meds (5) Vascular dementia: Code(s): F01.50 - Vascular dementia without behavioral disturbance Status: Chronic Assessment and Plan: confusion much improved, seems to be back to much more lucid mental status. Subjective Subjective Date/Time Seen: 04/25/22 08:55 Post Op day: #6 Patient reports: feels better, pain is less, tolerating a regular diet and other ( Patient must more lucid today, answers questions appropriately. Remembered me from yesterday.) Review of Systems Review of Systems: All systems reviewed & are unremarkable except as noted in HPI and below ( HPI) Constitutional: Constitutional: Denies chills, Denies fever(s) and Denies poor appetite Exam Const: General: comfortable and no acute distress; No confusion Nutritional Appearance: thin Orientation/consciousness: patient oriented x3 ( oriented to place- hospital, year-2021.) and No confusion GI: Inspection: non-distended, incision ( Dry and healing nicely. Ileostomy healthy with good output) and scaphoid GI Palp: Yes Soft to palpation, No Guarding due to palpation present (GI) and No Rebound tenderness present Auscultation: normal bowel sounds Neuro: General: patient oriented x3, no focal motor deficits and No confusion Extrem: General: no calf tenderness and no edema Psych: Affect: normal affect Insight: Good insight present (Psych) Judgement: Good judgement present (Psych) Objective Data Vital Signs Vital Signs: Vital Signs - 24 hr 04/24/22 14:00 04/24/22 21:01 04/24/22 20:00 Temperature 36.6 C 36.9 C Pulse Rate 69 72 Respiratory Rate 16 16 Blood Pressure 141/74 H 110/60 Pulse Oximetry 96 94 Oxygen Delivery Room Air 04/25/22 05:44 Temperature 36.9 C Pulse Rate 70 Respiratory Rate 16 Blood Pressure 111/56 L Pulse Oximetry 95 Oxygen Delivery Intake/Output Intake/Output: Intake & Output 04/22/22 04/23/22 04/24/22 04/25/22 23:59 23:59 23:59 23:59 Intake Total 2345 870 590 Output Total 300 1400 2200 300 Balance 2045 -530 -1610 -300 Meds/Results Medications: Active Medications Generic Name Dose Route Start Last Admin Trade Name Freq PRN Reason Stop Dose Admin Acetaminophen 500 mg 04/21/22 07:17 04/23/22 14:41 Acetaminophen 500 Mg Tablet PO 500 mg Q6H PRN Administration Mild Pain (1-3) or Fever Hydrocodone Bitart/Acetaminophen 1 tab 04/21/22 07:17 04/21/22 12:30 Hydrocodone/Acetaminophen (*Crx) 7.5-325 Mg Tablet PO 1 tab Q4H PRN Administration Pain Rated 7-10 Al Hydrox/Mg Hydrox/Simethicone 30 ml 04/23/22 01:45 04/24/22 03:11 Mag Hydrox/Al Hydrox/Simeth 30 Ml Udc PO 30 ml Q6H PRN Administration Indigestion Amoxicillin/Clavulanate Potassium 1 tablet 04/23/22 21:00 04/24/22 21:35 Amoxicillin/Clavulanate K 875-125 Mg Tab PO 1 tablet Q12HR ANSON Administration Bupropion HCl 150 mg 04/21/22 09:00 04/24/22 08:47 Bupropion Hcl Xl (24 Hr) 150 Mg Tabcr PO 150 mg DAILY ANSON Administration Carbidopa/Levodopa 1 tablet 04/21/22 09:00 08
--- NOTE | 2022-04-25 14:54 | PM.IMPN ---
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 With that being said, he has not gotten very much of it due to pulling out his IV - continue with surgical recommendations 04/23/2022 interval history: POD # 4 patient remains restless and somewhat agitated, unable to provider ROS, seen by surgery service stop IV Zosyn and switch to oral Augmentin and Flagyl to avoid IVs as patient is pulling IVs out, also advanced diet to regular, will continue to monitor, 04/24/2022 interval history POD #5 today patient is more calm, and not as agitated, he being assisted by nursing staff with his breakfast, unable to provider ROS,on 04/23 seen by surgery service stopped IV Zosyn and switch to oral Augmentin and Flagyl to avoid IVs as patient is pulling IVs out, also advanced diet to regular, today patient is seen by surgery service, ileostomy is functioning, patient is tolerating his diet, will continue to monitor. 04/25/2022 interval history POD #6 today patient is more calm, and not as agitated, today he more pleasant and answer questions appropriately, on 04/23 seen by surgery service stopped IV Zosyn and switched to oral Augmentin and Flagyl to avoid IVs as patient was pulling IVs out, also advanced diet to regular, today, patient is seen by surgery service, ileostomy is functioning, patient is tolerating his diet, will continue to monitor, (2) History of ileostomy: Code(s): Z98.890 - Other specified postprocedural states Status: Acute Assessment and Plan: as above (3) Vascular dementia: Code(s): F01.50 - Vascular dementia without behavioral disturbance Status: Chronic Assessment and Plan: patient has a history of dementia and his confusion waxes and wanes at this time - he seems pretty content during my exam - continue Seroquel that was started yesterday at night - check B12 and folate (4) Parkinsons: Code(s): G20 - Parkinson's disease Status: Chronic Assessment and Plan: continue Sinemet - no parkinsonian features noted on exam (5) COVID-19: Code(s): U07.1 - COVID-19 Status: Acute Assessment and Plan: tested positive April 10, 2022 but is not having symptoms and is out of isolation (6) Hyperkalemia: Code(s): E87.5 - Hyperkalemia Status: Acute Assessment and Plan: patient was on IV fluids that contain potassium which were stopped. I suspect this will auto correct - will recheck BMP this afternoon - continue telemetry (7) Hypernatremia: Code(s): E87.0 - Hyperosmolality and hypernatremia Status: Acute Assessment and Plan: could be due to dehydration as the patient has been pulling out his IV - recheck labs this afternoon - lactated Ringer's started this morning but there appears to be a full bad since the patient keeps pulling out his IV - encourage oral hydration Subjective Date/time seen: 04/25/22 14:54 Interval history: Pt is a 76-year-old male here for perforated bowel. Patient was seen today and was pretty cooperative. he denies chest pain, shortness of breath, abdominal pain, nausea or vomiting. He asked me logical questions such as when is he going home and when I answered probably sometime soon he asked me just how long soon was. nurse states he goes in and out of some intense confusion and was ripping out his IV and telemetry earlier today. he last had a bowel movement yesterday and is now up to full liquids according to the nursing staff. 04/25/2022 interval history POD #6 today patien
[2022-04-25 15:11] VITALS: BP 135/78; PULSE 68; RESP 16; TEMP 36.3; O2SAT 95
[2022-04-25] MEDS: DONEPEZIL HCL 10 MG TABLET PO (20:49)
[2022-04-25] MEDS: QUEtiapine FUMARATE 12.5 MG TABLET PO (20:49)
[2022-04-25 21:27] VITALS: BP 114/74; PULSE 68; RESP 16; TEMP 36.6; O2SAT 95
[2022-04-26 06:00] VITALS: BP 131/68; PULSE 66; RESP 16; TEMP 36.9; O2SAT 94
[2022-04-26 06:43] LABS: Hematocrit 31.8 % (42.0-52.0); Hemoglobin 10.2 g/dL (14.0-18.0); Mean Corpuscular HGB Conc 32.1 g/dl (32-36); Mean Corpuscular Hemoglobin 30.4 pg (26-34); Mean Corpuscular Volume 94.6 fl (80-100); Mean Platelet Volume 10.5 fl (7.4-10.4); Platelet Count Result 176 k/mm3 (150-375); Red Blood Count 3.36 M/mm3 (4.6-6.20); Red Cell Distribution Width 12.6 % (11.5-14.5); White Blood Count 5.5 K/mm3 (4.5-10.0)
[2022-04-26] MEDS: metroNIDAZOLE 250 MG TABLET 500 MG PO ×2 (06:51→13:30)
[2022-04-26 06:59] LABS: Albumin Level 2.4 g/dL (3.5-5.1); Anion Gap 2 mmol/L (8-16); Blood Urea Nitrogen 20 mg/dL (9-20); Carbon Dioxide 29 mmol/L (22-30); Chloride 103 mmol/L (98-107); Estimated CRCL calculation 92 ml/min; Estimated Glomerular Filt Rate > 60; Glucose 91 mg/dL (65-110); Magnesium 1.9 mg/dL (1.6-2.3); Phosphorus 2.3 mg/dL (2.5-4.5); Potassium 4.1 mmol/L (3.4-5.0); Sodium 134 mmol/L (137-145)
[2022-04-26 07:50] VITALS: PULSE 66; O2SAT 95
[2022-04-26] MEDS: FAMOTIDINE 20 MG TABLET PO (08:52)
[2022-04-26] MEDS: buPROPion HCL XL (24 HR) 150 MG TABCR PO (08:52)
[2022-04-26] MEDS: AMOXICILLIN/CLAVULANATE K 875-125 MG TAB 1 TABLET PO (08:52)
[2022-04-26] MEDS: ENOXAPARIN 40 MG/0.4 ML SYRINGE SUB-Q (08:52)
[2022-04-26] MEDS: ENTACAPONE 200 MG TABLET PO ×2 (08:52→13:30)
[2022-04-26] MEDS: CARBIDOPA/LEVODOPA 10/100 MG TABLET 1 TABLET PO (08:52)
[2022-04-26] MEDS: CARBIDOPA/LEVODOPA 25/100 MG TABLET 2 TABLET PO ×2 (08:52→13:30)
--- NOTE | 2022-04-26 13:25 | PM.IMPN ---
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 - Acquired absence of other specified parts of digestive tract Status: Acute Assessment and Plan: postop and doing well -tolerating diet Okay with discharge (2) History of ileostomy: Code(s): Z98.890 - Other specified postprocedural states Status: Acute Assessment and Plan: as above (3) Vascular dementia: Code(s): F01.50 - Vascular dementia without behavioral disturbance Status: Chronic Assessment and Plan: patient has a history of dementia and his confusion waxes and wanes at this time - he seems pretty content during my exam - continue Seroquel that was started yesterday at night - check B12 and folate (4) Parkinsons: Code(s): G20 - Parkinson's disease Status: Chronic Assessment and Plan: continue Sinemet - no parkinsonian features noted on exam (5) COVID-19: Code(s): U07.1 - COVID-19 Status: Acute Assessment and Plan: tested positive April 10, 2022 but is not having symptoms and is out of isolation (6) Hyperkalemia: Code(s): E87.5 - Hyperkalemia Status: Acute Assessment and Plan: patient was on IV fluids that contain potassium which were stopped. I suspect this will auto correct - will recheck BMP this afternoon - continue telemetry (7) Hypernatremia: Code(s): E87.0 - Hyperosmolality and hypernatremia Status: Acute Assessment and Plan: could be due to dehydration as the patient has been pulling out his IV - recheck labs this afternoon - lactated Ringer's started this morning but there appears to be a full bad since the patient keeps pulling out his IV - encourage oral hydration Subjective Date/time seen: 04/26/22 13:25 No complaints, eating. Tolerating antibiotic Exam Narrative: elderly frail Patient is comfortable, NAD HEENT: eyes are clear and none icteric LUNGS: normal respiratory effort ABD: not distended Lower extremities: no edema SKIN: nonjaundiced Neuro: grossly intact somewhat confused. Const: Other: Ill-appearing, well-developed well-nourished HENMT: Other: Mucous membranes are dry Eyes: Other: Pupils are equal and reactive, no scleral icterus, no conjunctival pallor Neck: Other: No JVD, no lymphadenopathy Resp: Other: Decreased breath sounds bilaterally, no increased work of breathing Cardio: Other: Regular rate, regular rhythm, 2+ bilateral radial pedal pulses GI: Other: Underlying abdominal incision with overlying dressing clean dry and intact, ileostomy in the right side of the abdomen : Other: Langford catheter in place with dark urine present normal external male genitalia Skin: Other: Generalized pallor, non jaundice Neuro: Other: moving all extremities equally, alert to self only, very restless, does not follow commands Extrem: Other: No clubbing, cyanosis or edema, moving all extremities equally Psych: Other: Restless, grimacing, confused, not following commands Objective Data Vital Signs Vital Signs: Vital Signs - 24 hr 04/25/22 15:11 04/25/22 21:27 04/25/22 20:00 Temperature 97.4 F L 97.9 F Pulse Rate 68 68 Respiratory Rate 16 16 Blood Pressure 135/78 114/74 Pulse Oximetry 95 95 Oxygen Delivery Room Air 04/26/22 06:00 04/26/22 07:50 04/26/22 09:15 Temperature 98.4 F Pulse Rate 66 66 Respiratory Rate 16 Blood Pressure 131/68 Pulse Oximetry 94 95 Oxygen Delivery Room Air Room Air Intake/Output Intake/Output: Intake & Output 04/23/22 04/24/22 04/25/22 04/26/22 23:59 23:59 23:59 23:59 Intake Total 870 590 840 600 Output Total 1400 2200 650 1350 Balance -530 -4880 190 -750 Meds/Results Medications: Active Medications Generic Name Dose Route Start Last Admin Trade Name Freq PRN Reason Stop Dose Admin Acetamin
--- NOTE | 2022-04-26 13:46 | PCNWS ---
Weekly nutritional screen. Patient is tolerating current diet with adequate intake. No weight loss reported. No nutritional needs at this time.
--- NOTE | 2022-04-26 14:13 | PM.DS ---
DS: Admitting Diagnosis Discharge Date 04/26/2022 Admitting Diagnosis Pneumoperitoneum Acute abdomen Parkinson's Vascular dementia COVID-19 DS: Discharge Diagnosis Discharge Diagnosis (1) Colonic volvulus: Code(s): K56.2 - Volvulus Status: Acute (2) Perforation of cecum: Code(s): K35.32 - Acute appendicitis with perforation and localized peritonitis, without abscess Status: Acute Assessment and Plan: Status post total abdominal colectomy with end ileostomy on 04/19/[address] Gasca. Pathology showed cecum with focal transmural acute inflammation, necrosis, and perforation, and 2 benign lymph nodes. Pathology discussed with patient in detail. 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 - Acquired absence of other specified parts of digestive tract Status: Acute (4) Ileostomy status: Code(s): Z93.2 - Ileostomy status Status: Acute (5) Vascular dementia: Code(s): F01.50 - Vascular dementia without behavioral disturbance Status: Chronic (6) Parkinsons: Code(s): G20 - Parkinson's disease Status: Chronic (7) COVID-19: Code(s): U07.1 - COVID-19 Status: Acute DS: Summary Hospital Course Reason for hospitalization: This is a 76-year-old man with a history of dementia and Parkinson's who lives at [facility] and was brought in to the ER at [place] for evaluation of diarrhea and abdominal pain. In the ER, he was found to have a large amount of pneumoperitoneum on the CT scan of the abdomen and pelvis. Labs showed a low white blood cell count and mild electrolyte abnormalities. He had peritoneal signs on exam. The patient was then directly admitted to [facility] as a transfer for surgical evaluation. Hospital Course: The patient was started on broad-spectrum IV antibiotics and taken to surgery late in the evening on 04/19/2022 after arriving from [facility]. He was found to have a volvulus involving the transverse colon and descending colon with the long vascular pedicle and the excessive midtransverse pedicle involved in the volvulus. Proximally, his colon was very dilated and he had evidence of cecal perforation. Ultimately, he required a total abdominal colectomy with end ileostomy. The hospitalist was consulted postoperatively for medical management. He had also incidentally tested positive for COVID on 04/10/2022. Since he was passed isolation. And no longer having symptoms, isolation precautions were discontinued. Electrolytes were replaced as needed. He was monitored with serial labs. An NG tube was left in place following surgery, but was pulled out by the patient the night of surgery and left out. His ileostomy started functioning postop day 1 and he was started on a liquid diet postop day 2. Initially following surgery, he had some lethargy and confusion. His home medications were restarted once he was tolerating a liquid diet. His diet was slowly advanced to a regular diet. He also had a urinary catheter following surgery, which was subsequently removed on postop day 2. He has been voiding without difficulty. He developed hyperkalemia and hypernatremia, which was managed with IV fluids. He continue to deal with confusion and agitation resulting in pulling IVs and tubes. He was started on Seroquel at night to help with his agitation. This slowly improved throughout his hospitalization and he is now back to his baseline mentation. On postop day 4 he was switched from IV Zosyn to oral Augmentin and Flagyl. This allowed for less IV needs. After being advanced to a regular diet by postop day 4, his ileostomy continued to function well and appeared healthy and viable. Wound care was consulted during his hospitalization for ostomy care and teaching. Status at Discharge Functional status at discharge: uses cane/walker Overall status at discharge: patient is progressing back to baseline Time Spent with Lainey
[2022-04-26 14:20] VITALS: BP 119/74; PULSE 76; RESP 16; TEMP 36.6; O2SAT 98
== END 2022-04-26 16:07 | DRG 329 ==
PROVIDERS: Family Medicine; Internal Medicine; Physician Assistant; Admitting Provider Surgery; Visit Provider Chiropractor
PROC: 0DTE0ZZ Resection of Large Intestine, Open Approach (ICD-10-PCS; CPT 49000; principal; 2022-04-19 19:00)
DX: K56.2 Volvulus (principal); U07.1 COVID-19; E87.0 Hyperosmolality and hypernatremia; G20 Parkinson's disease; F01.50 Vascular dementia, unspecified severity, without behavioral disturbance, psychotic disturbance, mood disturbance, and anxiety; K63.89 Other specified diseases of intestine; E87.6 Hypokalemia; I10 Essential (primary) hypertension; E87.5 Hyperkalemia; E78.5 Hyperlipidemia, unspecified; F32.A Depression, unspecified; F41.1 Generalized anxiety disorder; N40.0 Benign prostatic hyperplasia without lower urinary tract symptoms; N32.81 Overactive bladder; E53.8 Deficiency of other specified B group vitamins; E55.9 Vitamin D deficiency, unspecified; Z66 Do not resuscitate; Z90.49 Acquired absence of other specified parts of digestive tract; Z79.899 Other long term (current) drug therapy
CPT/HCPCS: 36415; 80048; 80053; 80069; 82607; 82746; 83605; 83735; 85025; 85027; 85610; 85730; 88307; 93005; A9270; J0330; J1650; J1741; J2060; J2370; J2405; J2543; J2704; J2710; J3010; J3475; J3480; J7040; J7120

== ENCOUNTER 2022-06-15 08:10 | Outpatient (RCR) | payer OTHER, SELFPAY ==
[2022-05-08 09:19] VITALS: BMI 22.4
--- NOTE | 2022-05-08 17:01 | P.PNWOUND_ITS ---
Wound Care Note Date/Time: 05/08/22 17:01 History: Patient presented with free intraperitoneal air and acute abdomen. He was transferred here from [place]. 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 He is seen now in the wound clinic for follow-up of his surgical incision as well as the stoma. Wound history: First postop visit following his surgery on 04/19/2022. Wound approximation: Yes ( Midline incision is closed in looks good. Ileostomy is pink and healthy) Surrounding tissue appearance: Peristomal skin is moist, red, and excoriated. stomal effluent causing significant skin irritation and excoriation. Treatment/Procedures: Tolnaftate powder treat min to red irritated skin and crusted in place with skin prep. Dressings: Changed to 2 piece, cut to fit ileostomy appliance. Assessment and Plan Assessment and plan (1) Fungal dermatitis: Code(s): B36.9 - Superficial mycosis, unspecified Status: Acute Assessment and Plan: peristomal skin. Treat with tone after tape (2) Intestinal appliance fitting and adjustment: Code(s): Z46.59 - Encounter for fitting and adjustment of other gastrointestinal a ppliance and device Status: Acute Assessment and Plan: changed to 2 piece cut to fit ileostomy appliance to prevent further leakage and enzymatic skin damage. 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 (4) Ileostomy status: Code(s): Z93.2 - Ileostomy status Status: Acute Assessment and Plan: As above (5) Vascular dementia: Code(s): F01.50 - Vascular dementia without behavioral disturbance Status: Chronic (6) Parkinsons: Code(s): G20 - Parkinson's disease Status: Chronic Review of Systems Review of Systems: All systems reviewed & are unremarkable except as noted in HPI and below ( Wound care note) Gastrointestinal: Gastrointestinal: Denies abdominal pain, Denies nausea and Denies vomiting
== END 2022-07-31 09:28 ==
LOC: ANHWOC 08:10
PROVIDERS: Visit Provider Surgery
DX: Z43.2 Encounter for attention to ileostomy (principal)
CPT/HCPCS: 99212; 99213; A9270; G0463